=== PATIENT | male | born 1995 | race Caucasian/White ===

== ENCOUNTER 2024-01-18 11:36 | Emergency (ER) | payer OTHER ==
[~2024-01-18] VITALS: Ht 162.6 cm; Wt 77.0 kg
[2024-01-18 11:40] VITALS: BP 161/99; PULSE 89; RESP 18; TEMP 98.4; O2SAT 99
[2024-01-18] MEDS ORDERED: TETANUS, DIPHTHERIA, PERTUSSIS VAC/PF 0.5ML (>10YR OLD) IM ONE ×2 (12:00→13:15)
== END 2024-01-18 13:50 ==
LOC: ER 11:36
DX: S00.03XA Contusion of scalp, initial encounter (principal); S60.512A Abrasion of left hand, initial encounter; S60.511A Abrasion of right hand, initial encounter; V43.52XA Car driver injured in collision with other type car in traffic accident, initial encounter; Y93.89 Activity, other specified; Y92.89 Other specified places as the place of occurrence of the external cause; Y99.8 Other external cause status
CPT/HCPCS: 71045; 73130; 99284